=== PATIENT | female | born 1960 | race Caucasian/White ===

== ENCOUNTER → 2024-01-28 13:38 | Outpatient (REF) | payer BC, SELFPAY | LOC: HWWDC 13:38 | PROVIDERS: ATTENDING PHYSICIAN Obstetrics & Gynecology Gynecology; FAMILY PHYSICIAN Family Medicine | DX: Z12.31 Encounter for screening mammogram for malignant neoplasm of breast (principal) | CPT/HCPCS: 77063; 77067 ==

== ENCOUNTER → 2024-06-16 07:17 | Outpatient (REF) | payer BC, SELFPAY | LOC: RCS 07:17 | PROVIDERS: ATTENDING PHYSICIAN Internal Medicine; FAMILY PHYSICIAN Family Medicine | DX: I25.119 Atherosclerotic heart disease of native coronary artery with unspecified angina pectoris (principal); I50.22 Chronic systolic (congestive) heart failure | CPT/HCPCS: 93306 ==

== ENCOUNTER 2024-06-23 07:07 | Day surgery (SDC) | payer BC, SELFPAY ==
[2024-06-23] VITALS (16 sets, daily range): BP systolic 93–121; BP diastolic 60–87; BMI 34.2
--- NOTE | 2024-06-23 09:48 | ITS.CL.CATH ---
[facility] - Catheterization
Cardiac Catheterization
Procedure Report:
CARDIAC CATHETERIZATION REPORT
Date of Procedure: 06/23/2024
Referring: Varghese Dietz MD
Indication: Angina/exertional dyspnea with known CAD
�
HEMODYNAMIC DATA
AO: 153/82
LV: 153/12
�
LEFT VENTRICULOGRAPHY: Focal area of mid anterolateral akinesis with EF 51%
�
CORONARY ANGIOGRAPHY
Dominance: Left
Left Main: Short without focal stenosis
LAD: 20% mid LAD stenosis distal to the takeoff of the large D2 with otherwise mild luminal irregularities in the LAD proper. D1 is a medium to large distribution vessel with a long stented segment extending from the proximal through the mid
vessel. There is focal 50% restenosis in the proximal stented segment. There is 30% stenosis in the diagonal distal to the stented segment. D2 is large with mild luminal irregularities
Circumflex: Large dominant vessel with trivial luminal irregularities
RCA: Nondominant with 30% mid stenosis
�
FloWire assessment: At the conclusion the diagnostic study we performed assessment of the 50% D1 restenotic lesion. Heparin is used for anticoagulation. A 6 [place] EBU 3.5 guide catheter was used. A [employer] pressure wire was advanced into D1 with
the transducer placed at the distal margin of the stent. The iFR values were 0.91, 0.91, 0.92. These are consistent with nonflow-limiting disease. The procedure was then completed
Closure Device: None-the procedure was performed via the right radial artery. The right radial artery pulse was weak but palpable and we were able to successfully access it for this procedure
�
Radiation (mGy): 398
DAP (cm2.Gy): 30.6
Fluoroscopy time: 5.4 minutes
�
CONCLUSIONS
1:�Systemic hypertension
2:�Area of anterolateral akinesis from prior myocardial infarction (02/2023) with EF 51%
3. Mild CAD as described above-the long stented segment in the first diagonal branch is patent and FloWire assessment demonstrates nonflow-limiting disease in this vessel
4. Continue medical therapy with risk factor modification. We will stop Brilinta at this time and recommend long-term aspirin monotherapy
�
�
Copy to: Varghese Dietz MD, Abel Joseph,
�
Vivek Sousa MD, FAC, [facility]
[2024-06-23 13:26] LABS: ACT-LR - POC 102 Seconds (116-155)
[2024-06-23 13:26] LABS: ACT-LR - POC 252 Seconds (116-155)
== END 2024-06-23 13:34 | disposition home or self-care (01) ==
LOC: CATH 07:07
PROVIDERS: ATTENDING PHYSICIAN Internal Medicine Cardiovascular Disease; FAMILY PHYSICIAN Family Medicine; OTHER PHYSICIAN Internal Medicine
DX: I25.119 Atherosclerotic heart disease of native coronary artery with unspecified angina pectoris (principal); I10 Essential (primary) hypertension; I25.2 Old myocardial infarction; Z79.82 Long term (current) use of aspirin; Z79.899 Other long term (current) drug therapy; Z79.890 Hormone replacement therapy
CPT/HCPCS: 85347; 93458; 93799; C1769; C1894; Q9967

== ENCOUNTER → 2025-01-30 07:52 | Outpatient (REF) | payer OTHER, SELFPAY | LOC: HWWDC 07:52 | PROVIDERS: ATTENDING PHYSICIAN Obstetrics & Gynecology Gynecology; FAMILY PHYSICIAN Family Medicine | DX: Z78.0 Asymptomatic menopausal state (principal); Z12.31 Encounter for screening mammogram for malignant neoplasm of breast | CPT/HCPCS: 77063; 77067; 77080 ==

== ENCOUNTER 2025-03-27 06:23 | Day surgery (SDC) | payer OTHER, SELFPAY ==
[2025-03-23 11:00] LABS: Hematocrit 49.1 % (37.0-47.0); Hemoglobin 16.4 g/dL (12.0-16.0); Mean Corp Hgb Conc. 33.4 g/dL (33.0-37.0); Mean Corpuscular Volume 90.6 fL (81.0-99.0); Platelet Count 221 10^3/uL (130-400); Red Cell Dist. Width 12.3 % (11.5-14.5)
[2025-03-23 11:21] LABS: Blood Urea Nitrogen 19 mg/dl (7-17); Calcium 9.8 mg/dl (8.4-10.2); Carbon Dioxide 28 mmol/L (22-30); Chloride 102 mmol/L (98-107); Glucose 85 mg/dl (70-99); Potassium 4.9 mmol/L (3.5-5.1); Sodium 138 mmol/L (135-145); eGFR > 60.00
[2025-03-23 14:17] VITALS: BMI 30.7
[2025-03-27] VITALS (9 sets, daily range): BP systolic 114–130; BP diastolic 46–72; BMI 34.7
[2025-03-27] MEDS: HEPARIN 5000 UNITS SC (09:34)
[2025-03-27] MEDS: NORMOSOL-R/PLASMALYTE-A 1000 IV (09:36)
--- NOTE | 2025-03-27 13:55 | W.IMMPOSTOP ---
Surgical Immed Post Op Note
-
Primary Surgeon: Varghese Jaramillo MD
Assisting Surgeon: None
Pre-op Diagnosis: Pelvic mass
Post-op Diagnosis: Cervical fibroid
Procedure Performed: Rigid proctosigmoidoscopy
Anesthesia Type: General
Specimen / Cultures: Per Dr. Quintanilla
Estimated Blood Loss: Per Dr. Quintanilla
Complications: None
Operative Findings: Small to moderate amount of formed stool within the rectum; able to clear some of it and advance to 15 cm, beyond at the pelvic mass seen on laparoscopy; no obvious rectal mass, but visualization was partially obscured due to
stool
--- NOTE | 2025-03-27 13:56 | OR.RPT ---
Operative Report
Operative Report
DATE OF OPERATION: 03/27/2025
SURGEON: Varghese Jaramillo MD
PREOPERATIVE DIAGNOSIS: Pelvic organ prolapse
POSTOPERATIVE DIAGNOSIS: Pelvic organ prolapse, pelvic mass, likely cervical fibroid
OPERATION: Rigid proctosigmoidoscopy
ASSISTANTS:
1. None
ANESTHESIA: General
ESTIMATED BLOOD LOSS: Per Dr. Quintanilla
FINDINGS:
1. Advanced to 15 cm; visualization partially obscured due to small to moderate amount of formed stool; no obvious rectal mass seen
SPECIMENS:
1. Per Dr. Quintanilla
DRAINS: None
COMPLICATIONS: None
INDICATIONS: I received an intraoperative consult for Dr. Quintanilla. He explained that the patient is a 64-year-old female with a history of pelvic organ prolapse, currently undergoing hysterectomy with planned sacrocolpopexy. However, during his
dissection, he discovered a pelvic mass just below the cervix. I was consulted to rule out a possible rectal mass.
PROCEDURE IN DETAIL: Upon my arrival, the patient was intubated in supine Trendelenburg position with ports placed and the robot docked. I was able to visualize a pelvic mass on the DaVinci monitor, about 8 to 10 cm just below the cervix. The mass
appeared to be extraperitoneal. The mass extended towards the rectovaginal septum, and appearred to be in a left anterior positin within the pelvis. The rectum did not appear directly involved. However, it extended below the anterior pelvic
reflection and therefore was difficult to confirm. I proceeded with rigid proctosigmoidoscopy. The lubricated scope was passed transanally under direct visualization and the obturator was removed. Using insufflation, the sigmoidoscope was
advanced under direct visualization. There was small to moderate amount of formed stool. This was partially evacuated. I was able to advance to about 15 cm, which was above the pelvic mass. I slowly withdrew and evaluated the rectal mucosa. Due
to the formed stool, the visualization was not complete. However, I did not visualize any large concerning rectal mass. While performing this procedure, Dr. Quintanilla searched the patient's chart and found an MRI from 15 years ago. At that point,
she did have a cervical fibroid identified. Therefore, he felt that this mass most likely represented the cervical fibroid. My portion of the procedure was complete. There were no complications and the patient tolerated this well. Dr. Quintanilla
will dictate the remainder of the operation separately.
DICTATED BY: Varghese Jaramillo MD
[2025-03-27] MEDS: ZOFRAN 4 MG IV (16:41)
[2025-03-27] MEDS: TORADOL 15 MG IV ×2 (16:44→22:09)
[2025-03-27] MEDS: LOVENOX 40 MG SC (20:10)
[2025-03-27] MEDS: RANEXA EXTENDED RELEASE 500 MG PO (20:10)
[2025-03-27] MEDS: TOPROL XL 25 MG PO (20:11)
[2025-03-27] MEDS: NORMOSOL-R/PLASMALYTE-A IV (20:12)
[2025-03-28] VITALS: BP 127/85
[2025-03-28] MEDS: NORMOSOL-R/PLASMALYTE-A 1000 IV (02:59)
[2025-03-28 04:30] VITALS: BP 113/71
[2025-03-28] MEDS: TORADOL 15 MG IV ×2 (04:38→09:57)
--- NOTE | 2025-03-28 05:28 | PTCARENOTE ---
Breny d/c @ 1758. Pt tolerated standing at bedside well and expresses minimal pain. Pt OOB sitting in chair. Instructed to call for help to use bathroom.
[2025-03-28] MEDS: SYNTHROID 112 MCG PO (06:01)
[2025-03-28 06:33] LABS: Hematocrit 40.1 % (37.0-47.0); Hemoglobin 13.5 g/dL (12.0-16.0); Mean Corp Hgb Conc. 33.7 g/dL (33.0-37.0); Mean Corpuscular Volume 89.7 fL (81.0-99.0); Platelet Count 202 10^3/uL (130-400); Red Cell Dist. Width 12.1 % (11.5-14.5)
[2025-03-28 06:50] LABS: Blood Urea Nitrogen 17 mg/dl (7-17); Carbon Dioxide 25 mmol/L (22-30); Chloride 100 mmol/L (98-107); Estimated Creatinine Clearance 78 ml/min; Potassium 4.3 mmol/L (3.5-5.1); Sodium 131 mmol/L (135-145)
--- NOTE | 2025-03-28 07:45 | W.PN.GYN ---
Today's Communication / Plan
-
ambulate, pass voiding trial, tolerate diet
Physician Note
-
64yoF PMH POP currently POD1 s/p Robotic supracervical hysterecotmy, BSO, sacrocolpopexy, posterior colporrhaphy, retropubic sling cystoscopy. Colorectal team was called intraop for a suspicious pelvic mass; proctosigmoidoscopy was performed and
after review of prior MRI mass was suspected to be uterine fibroid. Uterine fibroid was removed and sent to pathology
Patient was evaluated on AM rounds. Patient�s pain is controlled on PO medications. She is tolerating liquids and ambulated to the bathroom without difficulty. She has not yet voided. She is passing flatus. She denies nausea, vomiting, chest pain,
SOB.
O :
GA: Well appearing female in NAD
HEENT: Normocephalic, EOMI
Abd: soft, nondistended, port and suprapubic sutures intact with dermabond, incisional tenderness
: Minimal vaginal spotting noted in pad
Ext: no lower extremity edema
Vital Signs
Temp Pulse Resp BP Pulse Ox
98.6 F 82 18 113/71 99
03/28/25 04:30 03/28/25 04:30 03/28/25 04:30 03/28/25 04:30 03/27/25 17:02
Intake and Output
03/27/25 03/28/25 03/29/25
06:59 06:59 06:59
Intake Total 3026 / 3026
Output Total 1525 / 1525
Balance 1501 / 1501
Intake:
Oral fluids 1900 / 1900
IV fluids (Total) 1126 / 1126
normosol 150 / 150
Output:
Urine, [place] 1525 / 1525
Laboratory Results
03/28/25 06:07
03/28/25 06:07
64yoF PMH POP currently POD1 s/p Robotic supracervical hysterecotmy, BSO, sacrocolpopexy, posterior colporrhaphy, retropubic sling cystoscopy. Hyponatremia likely 2/2 IV fluids and should improve with diet. Patient stable for discharge later today.
Plan
- Continue to monitor vitals
- Resume home medications
- Monitor vaginal incision bleeding
- Ibuprofen/Tylenol prn and vaginal ice packs for mild/moderate pain and dilaudid prn for severe pain
- Continue SCDs and Lovenox for DVT prophylaxis
- May discontinue IV fluids
- Regular diet
- Out of bed with assistance
- Followup trial of void
- Likely discharge home after voiding trial
- Followup in two weeks for postop exam
[2025-03-28 08:35] VITALS: BP 130/69
[2025-03-28] MEDS: ALDACTONE 50 MG PO (08:45)
[2025-03-28] MEDS: ASPIR LOW (ENTERIC COATED) 81 MG PO (08:46)
[2025-03-28] MEDS: RANEXA EXTENDED RELEASE 500 MG PO (08:47)
[2025-03-28] MEDS: PROTONIX 40 MG PO (08:47)
[2025-03-28] MEDS: FARXIGA 10 MG PO (08:47)
--- NOTE | 2025-03-28 10:28 | CM ---
CM met with pt bedside
Discharge order noted, awaiting outcome of void trial
Pt resides with her spouse who will transport home today
Pt maintains indep. throughout room
No dc needs noted
Admission order as SDC, IMM not issued
Discharge Disposition- home no needs, spouse transport
== END 2025-03-28 11:31 | disposition home or self-care (01) ==
LOC: SDS 06:23
PROVIDERS: ATTENDING PHYSICIAN Obstetrics & Gynecology; FAMILY PHYSICIAN Family Medicine
DX: N81.3 Complete uterovaginal prolapse (principal); N39.3 Stress incontinence (female) (male); N85.8 Other specified noninflammatory disorders of uterus; N83.8 Other noninflammatory disorders of ovary, fallopian tube and broad ligament; D25.9 Leiomyoma of uterus, unspecified
CPT/HCPCS: 57425; 45300; 58542; 57250; 57288; 36415; 80048; 80051; 82565; 84520; 85027; 86850; 86900; 86901; 88305; C1763; C1771

== ENCOUNTER → 2025-08-13 13:14 | Outpatient (REF) | payer OTHER, SELFPAY | LOC: RCS 13:14 | PROVIDERS: ATTENDING PHYSICIAN Internal Medicine; FAMILY PHYSICIAN Family Medicine | DX: I10 Essential (primary) hypertension (principal); I50.22 Chronic systolic (congestive) heart failure | CPT/HCPCS: 93306 ==